=== PATIENT | male | born 1995 | race Caucasian/White ===

== ENCOUNTER 2024-12-17 16:03 | Emergency (ER) | payer OTHER, SELFPAY ==
[~2024-12-17] VITALS: Ht 167.6 cm; Wt 100.8 kg
[2024-12-17] MEDS ORDERED: MUCI1TAB16 PO (16:12)
[2024-12-17] MEDS: ACETAMINOPHEN 500 MG TAB PO ONE (16:28)
[2024-12-17 16:58] LABS: RSV AMPLIFICATION NEGATIVE (NEGATIVE)
[2024-12-17] MEDS ORDERED: AMOX500T PO (18:11)
[2024-12-17] MEDS: IBUPROFEN 600MG TAB PO ONE (18:20)
[2024-12-17 18:23] VITALS: BP 176/99; TEMP 100.1; O2SAT 98
== END 2024-12-17 18:26 | disposition home or self-care (01) ==
LOC: M ED 16:03
DX: J02.0 Streptococcal pharyngitis (principal); F17.200 Nicotine dependence, unspecified, uncomplicated